=== PATIENT | male | born 1985 | race Two or more races ===

== ENCOUNTER 2019-01-06 17:40 | Emergency (ER) | payer MEDICAID, OTHER ==
[~2019-01-06] VITALS: Ht 165.1 cm; Wt 80.7 kg
[2019-01-06 18:37] VITALS: BP 151/95
== END 2019-01-06 20:15 | disposition home or self-care (01) ==
LOC: ER 17:48
DX: I73.00 Raynaud's syndrome without gangrene (principal); F17.210 Nicotine dependence, cigarettes, uncomplicated